=== PATIENT | male | born 1970 | race Caucasian/White ===

== ENCOUNTER 2025-04-20 05:51 | Day surgery (SDC) | payer BC, SELFPAY ==
[2025-04-07 14:05] VITALS: BMI 41.4
[2025-04-20] VITALS (10 sets, daily range): BP systolic 114–139; BP diastolic 61–85; BMI 41.4
[2025-04-20] MEDS: TYLENOL 1000 MG PO (06:28)
[2025-04-20] MEDS: NORMOSOL-R/PLASMALYTE-A 1000 IV (06:42)
--- NOTE | 2025-04-20 06:48 | W.SUR.PREOP ---
Pre-Operative Surgical Note
-
I have examined this patient prior to the performance of the scheduled procedure.
The patient's condition is unchanged from the time of the current History and
Physical and the patient is able to undergo the scheduled procedure.
--- NOTE | 2025-04-20 06:48 | HP.FOC2 ---
Focused History & Physical
Chief Complaint
HPI:
Chief Complaint: Umbilical hernia
HPI / Indication for Planned Procedure: This is a 55-year-old male who presents with a symptomatic umbilical hernia. Will plan for a robotic umbilical hernia repair with mesh
Relevant Past Medical History: Negative
Relevant Social History: Negative
Relevant Family History: Negative
Relevant Past Surgical History: Negative
Review of Systems
Review of Pertinent Systems: All Systems Negative
Medication
See Medication form for detailed medications: Yes
Medication List (including Herbals & OTC):
multivitamin 1 tab PO DAILY 04/13/25
Medications Reviewed: Yes
Allergies and Reactions
Patient has Allergies: No
Noted Allergies and Reactions:
Allergy/AdvReac Type Severity Reaction Status Date / Time
No Known Allergies Allergy Verified 04/20/25 06:20
Pertinent Physical Exam
All Other Systems: Negative
Head/Neck: Normal
Diagnosis / Assessment
This is a 55-year-old male who presents with a symptomatic umbilical hernia.
Plan / Procedure
Will plan for a robotic umbilical hernia repair with mesh
Anesthesia/Sedation to be done by Anesthesia Provider: Yes
--- NOTE | 2025-04-20 09:06 | W.IMMPOSTOP ---
Surgical Immed Post Op Note
-
Primary Surgeon: Matheus Carter MD
Assisting Surgeon: None
Pre-op Diagnosis: Umbilical hernia
Post-op Diagnosis: Same
Procedure Performed: Robotic umbilical hernia repair with mesh
Anesthesia Type: General
Specimen / Cultures: None
Estimated Blood Loss: 3 cc
Complications: None
Operative Findings: Large epiploic fat incarcerated in a 2 cm umbilical hernia defect reduced and then later resected. A large preperitoneal pocket was made. The defect was closed in the transverse direction using an 0 V-Loc 180 suture. An 11 cm
long by 10 cm wide Bard soft uncoated polypropylene mesh was then secured in the preperitoneal space and the flap was closed excluding the mesh completely from the underlying viscera.
--- NOTE | 2025-04-20 09:08 | OR.RPT ---
Operative Report
Operative Report
Patient Name: Edmundo Lewis
: 1970
Date of Operation: 04/20/2025
Preoperative Diagnosis: Umbilical hernia
Postoperative Diagnosis: Same
Procedure(s):
Robotic umbilical hernia repair with mesh ([facility] approach)
Surgeon(s):
Dr. Carter
Vacuum Worker(s):
JENNIFER Cruz
Anesthesia: General
Estimated Blood Loss: 3 cc
Urine Output: None
Drains/Lines/Implants:
10 x 11 cm Bard soft mesh
Specimens:
None
HPI/Surgical Indications:
This is a 55-year-old male with morbid obesity (BMI 41) who was seen in my office for a symptomatic umbilical bulge and diagnosed with an umbilical hernia. Risks/Benefits/Alternatives were discussed at length, and the patient agreed to proceed with
surgery.
Operative Findings: Large epiploic fat incarcerated in a 2 cm umbilical hernia defect reduced and then later resected. A large preperitoneal pocket was made. The defect was closed in the transverse direction using an 0 V-Loc 180 suture. An 11 cm
long by 10 cm wide Bard soft uncoated polypropylene mesh was then secured in the preperitoneal space and the flap was closed excluding the mesh completely from the underlying viscera.
Procedure Description:
The patient was brought to the Operating Room and placed in the supine position with the arms tucked. IV antibiotics were infused and Venodyne stockings placed. Following uneventful induction of general endotracheal anesthesia, an orogastric tube
was placed. The abdomen was prepped and draped in the usual sterile fashion. The abdomen was entered using a Veress technique which required 1 pass, pneumoperitoneum to 15 mmHg was obtained without difficulty. An 8mm trochar was passed through the
abdominal wall roughly 20 cm laterally from the defect in the left upper quadrant, we then confirmed that no inadvertent injury was made while passing the trocar or Veress needle. We then placed two additional 8 mm ports in the left lower quadrant.
Bilateral tap blocks were performed. The robot was docked. We then introduced our prograsper through the inferior/left hand port and a monopolar scissors through the superior port. We then turned our attention to the hernia which had no
intra-abdominal contents. We then began taking a flap down roughly 6 cm away from the defect and roughly 12 cm in length taking care to stay in the pretransversalis plane. The preperitoneal fat was taken down off of the posterior rectus sheath
both superior and inferior to the hernia defect such that we were able to get our 'volcano sign'. We then worked on reducing the defect which contained preperitoneal fat and continued our dissection out laterally for an additional 6 to 7 cm. Once
our flap was created we introduced a ruler and a 0 V-Loc 180. The main hernia defect measured 2 cm. The pocket measured 12 x 12 cm. I had my training assistant cut a 10 cm wide by 11 cm long cm piece of Bard soft mesh marked with 0 Vicryl suture at the
center, as I closed the umbilical defect. The mesh was then sutured to the posterior rectus sheath in 4 quadrants with 2-0 vircyls to ensure good apposition. A 2-0 Monocryl was introduced which was used to close our flap. A few small rents in the
peritoneal flap were closed with 2-0 Vicryl [id number]. All sutures were removed. There were 3 large epiploic appendages from the sigmoid colon that had been incarcerated in the hernia defect, I was concerned that these might cause
adhesions through which a small bowel obstruction could develop so they were ligated a few centimeters away from the bowel edge using a bipolar energy device and then removed using an Endo Catch bag. The robot was undocked. The ports were removed
under direct visualization and pneumoperitoneum was evacuated. The port sites were closed with 4-0 Monocryl followed by Dermabond. Counts were correct and overall, the patient tolerated the procedure well and was taken to the Recovery Room
postoperatively in stable condition.
I was the attending physician and performed the procedure with assistance of the PA above. The assistance of JENNIFER Cruz was required due to the complexity of the procedure. During the procedure Lara assisted with port placement, instrument
and needle exchanges, removal of the epiploic fat and closure of the wound. I was present for all portions of the case, excluding skin closure.
Matheus Carter MD
[2025-04-20] MEDS: DILAUDID 0.5 MG IV ×2 (09:21→09:34)
[2025-04-20] MEDS: ROXICODONE 5 MG PO (10:55)
== END 2025-04-20 11:06 | disposition home or self-care (01) ==
LOC: SDS 05:51
PROVIDERS: ATTENDING PHYSICIAN Surgery; FAMILY PHYSICIAN Family Medicine
DX: K42.9 Umbilical hernia without obstruction or gangrene (principal)
CPT/HCPCS: 49591; 36415; 93005; C1781